=== PATIENT | male | born 1955 | race Caucasian/White ===

== ENCOUNTER 2019-05-17 09:12 | Emergency (ER) | payer BC ==
[2019-05-17] MEDS ORDERED: Diphtheria,Pertussis(Acell),Tetanus Vaccine 0.5 ML SDV inactive IM ONE (10:19)
== END 2019-05-17 10:16 | disposition home or self-care (01) ==
LOC: LB.ED 09:12
DX: S01.111A Laceration without foreign body of right eyelid and periocular area, initial encounter (principal); Z23 Encounter for immunization; W22.8XXA Striking against or struck by other objects, initial encounter
CPT/HCPCS: 12014; 90471; 90715; 99282; J2001